=== PATIENT | male | born 1980 | race Caucasian/White ===

== ENCOUNTER 2016-05-19 16:50 | Emergency (ER) | payer OTHER ==
[2016-05-19] MEDS ORDERED: KETOROLAC 60 MG/2 ML VIAL IM STA (17:40)
[2016-05-19] MEDS ORDERED: HYDROmorphone 1 MG/ML SYRINGE IM STA (17:40)
[2016-05-19] MEDS ORDERED: KETOROLAC 60 MG/2 ML VIAL IVP STA (17:45)
[2016-05-19] MEDS ORDERED: ONDANSETRON 4 MG/2 ML VIAL IVP STA (17:45)
[2016-05-19] MEDS ORDERED: HYDROmorphone 1 MG/ML SYRINGE IVP STA (17:45)
[2016-05-19] MEDS ORDERED: ONDANSETRON 4 MG/2 ML VIAL ONE (17:46)
[2016-05-19] MEDS ORDERED: HYDROmorphone 1 MG/ML SYRINGE ONE (17:46)
[2016-05-19] MEDS ORDERED: KETOROLAC 30 MG/ML VIAL ONE (17:46)
[2016-05-19] MEDS ORDERED: KETOROLAC 30 MG/ML VIAL IVP STA (17:50)
[2016-05-19] MEDS ORDERED: HYDROcod/ACET 5/325 Prepack 6 PO STA (19:57)
[2016-05-19] MEDS ORDERED: HYDROcod/ACET 5/325 Prepack 6 PO ONE (19:58)
== END 2016-05-19 20:06 | disposition home or self-care (01) ==
DX: S06.0X1A Concussion with loss of consciousness of 30 minutes or less, initial encounter (principal); S52.501A Unspecified fracture of the lower end of right radius, initial encounter for closed fracture; S52.511A Displaced fracture of right radial styloid process, initial encounter for closed fracture; S16.1XXA Strain of muscle, fascia and tendon at neck level, initial encounter; S93.402A Sprain of unspecified ligament of left ankle, initial encounter; S80.01XA Contusion of right knee, initial encounter; S00.81XA Abrasion of other part of head, initial encounter; V00.311A Fall from snowboard, initial encounter; Y93.23 Activity, snow (alpine) (downhill) skiing, snowboarding, sledding, tobogganing and snow tubing; Y92.828 Other wilderness area as the place of occurrence of the external cause; Y99.8 Other external cause status; F17.200 Nicotine dependence, unspecified, uncomplicated
CPT/HCPCS: 29105; 70450; 72125; 73010; 73110; 73564; 73610; 96374; 96375; 99283; 99284; J1170

== ENCOUNTER 2016-05-30 10:04 | Day surgery (SDC) | payer OTHER ==
[~2016-05-30 10:04] MED LIST: ceFAZolin 2 GM/50 ML 50 ML IV ONE
[2016-05-30] MEDS ORDERED: LACTATED RINGERS 1,000 ML IV ONE ×3 (10:59→15:01)
[2016-05-30] MEDS ORDERED: ACETAMINOPHEN 1,000 MG/100 ML VIAL IV ONE (11:55)
[2016-05-30] MEDS ORDERED: PROPOFOL 200 MG/20 ML VIAL IVP ONE (11:55)
[2016-05-30] MEDS ORDERED: ONDANSETRON 4 MG/2 ML VIAL IVP ONE (11:55)
[2016-05-30] MEDS ORDERED: KETOROLAC 30 MG/ML VIAL IVP ONE (11:55)
[2016-05-30] MEDS ORDERED: ROPIVACAINE 0.5% PF 20 ML AMPULE EP ONE (11:55)
[2016-05-30] MEDS ORDERED: LIDOCAINE-MPF 2% 5 ML VIAL IM ONE (11:55)
[2016-05-30] MEDS ORDERED: DEXAMETHASONE 4 MG/ML VIAL IVP ONE (11:55)
[2016-05-30] MEDS ORDERED: fentaNYL 100 MCG/2 ML VIAL IVP ONE (11:55)
[2016-05-30] MEDS ORDERED: MIDAZOLAM 2 MG/2 ML VIAL IVP ONE (11:55)
[2016-05-30] MEDS ORDERED: BUPIVACAINE 0.25%-EPI 1:200000 PF 10 ML VIAL SUBQ ONE (12:34)
[2016-05-30] MEDS: MEPERIDINE 50 MG/ML SYRINGE ONE ×3 (13:49→14:50)
[2016-05-30] MEDS: HYDROmorphone 1 MG/ML SYRINGE ONE ×2 (13:55→14:00)
[2016-05-30] MEDS: fentaNYL 100 MCG/2 ML VIAL ONE ×2 (14:15→14:25)
[2016-05-30] MEDS ORDERED: HYDROmorphone 1 MG/ML SYRINGE ONE (14:28)
== END 2016-05-30 10:05 | disposition home or self-care (01) ==
PROC: 0PSH04Z Reposition Right Radius with Internal Fixation Device, Open Approach (ICD-10-PCS; principal; 2016-05-30 11:30)
DX: S52.531A Colles' fracture of right radius, initial encounter for closed fracture (principal); V00.321A Fall from snow-skis, initial encounter; Y93.23 Activity, snow (alpine) (downhill) skiing, snowboarding, sledding, tobogganing and snow tubing; F17.210 Nicotine dependence, cigarettes, uncomplicated
CPT/HCPCS: 25607; C1713; J0131; J0690; J1170; J7120

== ENCOUNTER 2018-05-18 00:28 | Emergency (ER) | payer OTHER ==
--- NOTE | 2018-05-18 01:21 | XRAY Report ---
Reason: injury/snowboarding Procedure Date: 05/18/2018 Accession Number: [id number] / [id number] Procedure: XR - Shoulder 3 View RT CPT Code: FULL RESULT: EXAM: RIGHT SHOULDER RADIOGRAPHY EXAM DATE: 05/18/2018 01:03 AM. CLINICAL HISTORY: Injury/snowboarding. COMPARISON: SCAPULA 2 VIEW RT 05/19/2016 6:11 PM. TECHNIQUE: 3 views. FINDINGS: Bones: Normal. No fracture or bone lesion. Joints: The glenohumeral and acromioclavicular joints are normal. Soft tissues: The visualized hemithorax is unremarkable. No soft tissue swelling. IMPRESSION: Normal shoulder radiography. [facility]
--- NOTE | 2018-05-18 02:42 | ED Physician Documentation ---
PD HPI UPPER EXT INJURY - Stated complaint Stated Complaint: R SHOULDER PX/FALL - Chief complaint Chief Complaint: Trauma Ext - History obtained from History obtained from: Patient - History of Present Illness Location: Right, Shoulder Type of injury: Fall Timing - onset: Yesterday Timing - details: Abrupt onset Pain level now: 5 Improved by: Rest Worsened by: Moving Associated symptoms: No: Weakness, Numbness, Tingling, Swelling, Discolored Similar symptoms before: Has not had sx before Recently seen: Not recently seen Review of Systems Musculoskeletal: reports: Joint pain, Joint swelling. denies: Neck pain, Back pain Neurologic: denies: Focal weakness, Numbness PD PAST MEDICAL HISTORY - Past Medical History Past Medical History: No Cardiovascular: None Respiratory: None Endocrine/Autoimmune: None GI: None : None Psych: None Musculoskeletal: None Derm: None - Past Surgical History Past Surgical History: No - Present Medications Home Medications: Ambulatory Orders Medication Instructions Recorded Confirmed HYDROcod/ACETAM 5/325 [[place] 5/325] 1 - 2 ea PO Q6H PRN #30 tablet 05/19/16 05/30/16 Hydrocodone/Acetaminophen 1 - 2 each PO Q6H PRN #20 tablet 05/18/18 [Hydrocodon-Acetaminophen 5-325] - Allergies Allergies/Adverse Reactions: Allergies Allergy/AdvReac Type Severity Reaction Status Date / Time No Known Drug Allergies Allergy Verified 05/18/18 00:33 - Social History Does the pt smoke?: Yes Smoking Status: Current every day smoker Does the pt drink ETOH?: Yes Does the pt have substance abuse?: No - Immunizations Immunizations are current?: Yes - POLST Patient has POLST: No PD ED PE NORMAL - Vitals Vital signs reviewed: Yes - General General: Alert and oriented X 3, No acute distress, Well developed/nourished - Extremities Extremities: No edema - Neuro Neuro: No motor deficit, No sensory deficit PD ED PE EXPANDED - Extremities Extremities: Tenderness, Limited ROM, Swelling, Right shoulder Results - Vitals Vitals: Oxygen O2 Source Room air - Rads (name of study) right shoulder xrays Radiology: Prelim report reviewed, See rad report PD MEDICAL DECISION MAKING - ED course Complexity details: reviewed results, re-evaluated patient, considered differential, d/w patient Departure - Departure Disposition: 01 Home, Self Care Clinical Impression: Shoulder injury Qualifiers: Encounter type: initial encounter Laterality: right Qualified Code(s): S49.91XA - Unspecified injury of right shoulder and upper arm, initial encounter Condition: Good Instructions: ED Sprain Shoulder, ED Sling Follow-Up: Reuben Matthews MD [Provider Admit Priv/Credential] - Prescriptions: Hydrocodone/Acetaminophen [Hydrocodon-Acetaminophen 5-325] 1 - 2 each PO Q6H PRN #20 tablet PRN Reason: pain Forms: Activity restrictions Discharge Date/Time: 05/18/18 03:14
[2018-05-18 02:43] VITALS: BP 112/74
[2018-05-18] MEDS: IBUPROFEN 600 MG TABLET PO STA (03:14)
[2018-05-18] MEDS: HYDROcod/ACETAM 5/325 MG TABLET PO STA (03:14)
== END 2018-05-18 03:14 | disposition home or self-care (01) ==
LOC: ED 00:28
DX: S49.91XA Unspecified injury of right shoulder and upper arm, initial encounter (principal); V00.311A Fall from snowboard, initial encounter; Y93.23 Activity, snow (alpine) (downhill) skiing, snowboarding, sledding, tobogganing and snow tubing; F17.200 Nicotine dependence, unspecified, uncomplicated
CPT/HCPCS: 99283